=== PATIENT | male | born 1960 | race Caucasian/White ===

== ENCOUNTER → 2017-07-14 | Outpatient (REF) ==
[~2017-07-14] MED LIST: MULTIPLE VITAMI1 CAP PO; VITAMIN C; ZOCOR
== END ==
LOC: WSOH 17:30
DX: Z02.89 Encounter for other administrative examinations (principal)

== ENCOUNTER 2018-05-31 10:22 | Emergency (ER) | payer OTHER ==
[~2018-05-31] VITALS: Ht 185.4 cm; Wt 106.8 kg
[2018-05-31 10:27] VITALS: TEMP 97.4
[2018-05-31 10:50] LABS: BASO # 0.1 (0.0-0.2); BASO % 0.9 % (0.0-2.0); EOS # 0.1 (0.0-0.7); EOS % 1.7 % (0-4.0); GRAN # 3.6 (1.4-6.5); GRAN % 52.1 % (42.2-75.2); HEMATOCRIT 43.3 % (42.0-52.0); LYMPH # 2.5 (1.2-3.4); LYMPH % 36.4 % (20.0-51.0); MEAN CELL VOLUME 87 fl (80.0-100.0); MEAN CORPUSCULAR HEMOGLOBIN 30 pg (27.0-31.0); MEAN CORPUSCULAR HGB CONC 35 g/dl (33.0-37.0); MEAN PLATELET VOLUME 9.7 fl (7.4-10.4); MONO # 0.6 (0.1-0.6); MONO % 8.2 % (1.7-9.3); PLATELET COUNT 203 K/mm3 (130-400); REDCELL DISTRIBUTION WIDTH-CV 13.2 % (11.5-14.5)
[2018-05-31 11:01] LABS: ALANINE AMINOTRANSFERASE 30 U/L (21-72); ALBUMIN 3.6 gm/dL (3.5-5.0); ALKALINE PHOSPHATASE 51 U/L (50-136); ANION GAP 11 mmol/L (7-16); AST,SGOT 22 U/L (15-37); BILIRUBIN,TOTAL 1.3 mg/dL (0.0-1.0); BLOOD UREA NITROGEN 16 mg/dL (9-20); CALCIUM 8.3 mg/dL (8.4-10.2); CARBON DIOXIDE 23 mmol/L (22-30); CHLORIDE 106 mmol/L (98-107); CREATININE, serum 0.81 mg/dL (0.66-1.25); GLUCOSE 149 mg/dL (74-106); MAGNESIUM 1.9 mg/dL (1.6-2.3); PHOSPHOROUS 0.8 mg/dL (2.5-4.5); POTASSIUM 3.7 mmol/L (3.4-5.0); SODIUM 139 mmol/L (137-145); TOTAL PROTEIN 6.6 gm/dL (6.4-8.2)
[2018-05-31 11:13] LABS: TROPONIN-I < 0.012 ng/mL (0.000-0.034)
[2018-05-31 12:18] VITALS: BP 102/69; PULSE 80
== END 2018-05-31 12:19 | disposition home or self-care (01) ==
LOC: COL.ER 10:22
PROVIDERS: Emergency Medicine
DX: R55 Syncope and collapse (principal); E78.00 Pure hypercholesterolemia, unspecified
CPT/HCPCS: J2405; J7030

== ENCOUNTER → 2018-09-20 | Day surgery (SDC) | payer OTHER ==
[~2018-09-20] VITALS: Ht 185.4 cm; Wt 107.7 kg
[~2018-09-20] MED LIST changes: +[UNRECOGNIZED DRUG - OTHER] TP
[2018-09-20 06:52] VITALS: BP 143/89; PULSE 80; TEMP 98.5
[2018-09-20 08:15] VITALS: BP 101/72; PULSE 76; TEMP 97.1
[2018-09-20 08:30] VITALS: BP 117/83; PULSE 71
== END ==
LOC: SDCO 06:16
DX: Z12.11 Encounter for screening for malignant neoplasm of colon (principal); D12.2 Benign neoplasm of ascending colon; D12.4 Benign neoplasm of descending colon; K63.5 Polyp of colon; K62.1 Rectal polyp; K57.30 Diverticulosis of large intestine without perforation or abscess without bleeding; K64.0 First degree hemorrhoids; K29.30 Chronic superficial gastritis without bleeding; L40.9 Psoriasis, unspecified; R03.0 Elevated blood-pressure reading, without diagnosis of hypertension
CPT/HCPCS: J2704; J7120

== ENCOUNTER → 2018-10-15 | Outpatient (CLI) | payer OTHER | LOC: COL.RAD 09:20 | DX: R13.10 Dysphagia, unspecified (principal) ==

== ENCOUNTER → 2018-10-17 | Outpatient (REF) | LOC: ZLAB.WCH 09:41 | DX: Z01.89 Encounter for other specified special examinations (principal) | CPT/HCPCS: G0103 ==